=== PATIENT | female | born 2000 ===

== ENCOUNTER 2021-11-30 17:39 | Emergency (ER) | payer SELFPAY ==
[2021-11-30 17:47] VITALS: BP 108/69; PULSE 102; RESP 18; TEMP 36.6; O2SAT 100
--- NOTE | 2021-11-30 21:04 | ED.BACK ---
HPI - Back Pain/Injury General Chief Complaint: Back Pain/Injury Stated Complaint: back pain radiates to LLE Time Seen by Provider: 11/30/21 20:02 Source: patient Mode of arrival: ambulatory Limitations: no limitations History of Present Illness HPI Narrative: 21-year-old female presents today with complaints of left back pain that radiates down the front of her leg. She has had for about 10 days. Patient is a student at [employer]. She has been to the clinic there and they did sent her here. Patient denies any trauma to the back. Patient states she was doing some heavy lifting and on her feet all day prior to the pain starting. Patient tried ibuprofen without relief and is on Flexeril at home. Patient denies any urinary incontinence, bowel incontinence, saddle paresthesia, weakness to the legs, IV drug usage. Related Data Allergies Allergy/AdvReac Type Severity Reaction Status Date / Time No Known Allergies Allergy Verified 11/30/21 19:52 Review of Systems Review of Systems: CONSTITUTIONAL: Denies fever, chills, or sweats. EYES: Denies visual changes, redness, or discharge. ENT: Denies rhinorrhea, congestion, sore throat, or otalgia. CARDIOVASCULAR: Denies chest pain, palpitations, or edema. RESPIRATORY: Denies cough or dyspnea. GASTROINTESTINAL: Denies abdominal pain, nausea, vomiting, or diarrhea. GENITOURINARY: Denies dysuria or hematuria. SKIN: Denies rash or itching. MUSCULOSKELETAL: Left lower back pain radiating down left leg. Denies back joint pain, or myalgia. NEUROLOGIC: Denies headache, numbness, dizziness, or weakness. PSYCHIATRIC: Denies anxiety or depression. Exam Narrative: GENERAL: Well-appearing, well-nourished, and in no acute distress. HEAD: Normocephalic, atraumatic. EYES: PERRLA and EOMI. CHEST: Clear to auscultation. No respiratory distress. No wheezes rales or rhonchi HEART: Regular rate and rhythm. No murmur heard. Normal peripheral pulses. ABDOMEN: Soft, nontender, nondistended, normal active bowel sounds. EXTREMITIES: Normal range of motion. No edema. SKIN: Warm, dry, no rash. NEURO: No focal deficits. Alert and oriented x3. PSYCH: Normal mood and affect. Course Course Emergency Course: Offered patient medication and treatment in the ER. She declined any treatment here. States she just wanted medications and to be discharged. Patient discharged on naproxen and prednisone. Instructed not to take the naproxen until the prednisone dose imaging was done. Plan follow-up with primary. Vital Signs Vital signs: Vital Signs Temperature 36.6 C 11/30/21 17:47 Pulse Rate 102 H 11/30/21 17:47 Respiratory Rate 18 11/30/21 17:47 Blood Pressure 108/69 11/30/21 17:47 Pulse Oximetry 100 11/30/21 17:47 Temperature 36.6 C 11/30/21 17:47 Pulse Rate 97 11/30/21 21:58 Respiratory Rate 16 11/30/21 21:58 Blood Pressure 110/67 11/30/21 21:58 Pulse Oximetry 99 11/30/21 21:58 MDM - Back Pain/Injury MDM Narrative Medical decision making narrative: Patient's pain is positional in nature and localized to back without signs of cord compression or cauda equina based on neurological exam, skeletal exam and history. No fever or other significant factors to suggest osteomyelitis or spinal epidural abscess. No symptoms or signs to suggest pain is referred from abdominal or / cardiopulmonary sources. No pulsatile masses noted on exam. Patient ambulates with steady gait and is stable for outpatient management given case findings. Differential Diagnosis Differential diagnosis: Likely lumbar radiculopathy, sciatica and strain of lumbar region Medical Records Attestation: I reviewed the patient's medical records. Discharge Plan Discharge Clinical Impression: Lumbar radiculopathy Patient Disposition: Home, Self-Care Condition: Stable Instructions: Antibiotic Form, Acute Low Back Pain (ED), Lumbar Radiculopathy (ED) Additional Instructions: Please stop ibuprofen.
[2021-11-30] MEDS: NAPROXEN 500 MG TABLET PO (21:20)
[2021-11-30] MEDS: ORPHENADRINE CITRATE 100 MG TABLET.ER PO (21:20)
[2021-11-30] MEDS: predniSONE 20 MG TABLET 40 MG PO (21:20)
[2021-11-30] MEDS: LIDOCAINE 5% PATCH 1 PATCH TRANSDERM (21:38)
[2021-11-30 21:58] VITALS: BP 110/67; PULSE 97; RESP 16; O2SAT 99
== END 2021-11-30 21:59 | disposition home or self-care (01) ==
PROVIDERS: Emergency Provider Nurse Practitioner Family
DX: M54.16 Radiculopathy, lumbar region (principal)
CPT/HCPCS: 99283; A9270; J7512